=== PATIENT | male | born 1970 | race Caucasian/White ===

== ENCOUNTER → 2021-02-07 13:03 | Outpatient (BNVA) | payer OTHER, SELFPAY | PROVIDERS: PCP Internal Medicine; Visit Provider Internal Medicine | DX: M75.21 Bicipital tendinitis, right shoulder (principal) | CPT/HCPCS: 99202 ==

== ENCOUNTER → 2021-02-09 15:14 | Outpatient (BNVA) | payer OTHER, SELFPAY | PROVIDERS: PCP Internal Medicine; Visit Provider Internal Medicine | DX: M75.42 Impingement syndrome of left shoulder (principal) | CPT/HCPCS: 99213 ==

== ENCOUNTER → 2021-06-06 11:38 | Outpatient (BNVA) | payer OTHER, SELFPAY | PROVIDERS: PCP Internal Medicine; Visit Provider Physician Assistant | DX: S63.502D Unspecified sprain of left wrist, subsequent encounter (principal); X58.XXXD Exposure to other specified factors, subsequent encounter | CPT/HCPCS: 29085; 73110; 99214 ==

== ENCOUNTER → 2021-06-12 13:02 | Outpatient (BNVA) | payer OTHER, SELFPAY | PROVIDERS: PCP Internal Medicine; Visit Provider Internal Medicine | DX: S63.642D Sprain of metacarpophalangeal joint of left thumb, subsequent encounter (principal); X58.XXXD Exposure to other specified factors, subsequent encounter | CPT/HCPCS: 99213 ==

== ENCOUNTER 2021-06-21 08:32 | Outpatient (REF) | payer OTHER, SELFPAY ==
--- NOTE | ~2021-06-21 | XR_ITS ---
EXAMINATION: XR HAND, LEFT CLINICAL INFORMATION: Left hand pain. COMPARISON: Left wrist radiographs dated 06/06/2021. TECHNIQUE: PA, lateral, and oblique views of the left hand. FINDINGS: The bones and soft tissues are normal. No fracture. Alignment is anatomic. Joint spaces are maintained. No erosions or soft tissue calcifications. XR/XR hand LT min 3V IMPRESSION: Unremarkable examination.
== END 2021-06-21 08:33 | disposition home or self-care (01) ==
LOC: HO.HOSX 08:32
PROVIDERS: Visit Provider Orthopaedic Surgery
DX: M65.4 Radial styloid tenosynovitis [de Quervain] (principal)
CPT/HCPCS: 73130; 99202

== ENCOUNTER → 2021-07-13 13:15 | Outpatient (BNVA) | payer OTHER, SELFPAY | PROVIDERS: Visit Provider Orthopaedic Surgery | DX: M65.4 Radial styloid tenosynovitis [de Quervain] (principal) | CPT/HCPCS: 99212 ==

== ENCOUNTER 2021-07-18 13:00 | Outpatient (RCR) | payer OTHER, SELFPAY ==
--- NOTE | 2021-07-12 13:02 | MHC.OT.OP ---
[address] [phone] F: [phone] Occupational Therapy Progress Note Diagnosis: Left thumb injury Date of Evaluation: 06/20/21 Treatments to Date: 7 Subjective: It's a consistent 2/10, the pain is going down. If I do something I shouldn't the pain goes higher Pain Score: 2 Pain Location: radial wrist Objective Measures: Wrist ext/flex 70/70 B/L'ly Gross grasp R 60 L 47 Status: Progressing Assessment: Progressing after traumatic De Quervain's tendinitis. Low pain overall w/ good ROM, slightly decreased gross grasp. Good follow through w/ joint protection, activity modifcation and HEP. 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
--- NOTE | 2021-08-16 08:43 | MHC.OT.OP ---
[address] [phone] F: [phone] Occupational Therapy Progress Note Diagnosis: Left thumb injury Date of Evaluation: 06/20/21 Treatments to Date: 8 Subjective: I was out for Covid and then when I went back to work I pulled a tire out of the ambulance and felt a strong pain in my arm that goes all the way up now Pain Score: 6 Pain Location: radial wrist Objective Measures: *From previous assessment* Wrist ext/flex 70/70 B/L'ly Gross grasp R 60 L 47 Status: Progressing Assessment: Thang had been progressing well w/ pain and strength after acute De Quervain's tendinopathy, however he has not attended OT in about a month due to (+) Covid. I reached out via phone call to see if he was feeling well enough to discharge therapy services, but he reports at work this week he strained his wrist further and now has pain radiating up his arm. He states he has an appt at ortho tomorrow 08/17/21 and will likely ask for a Cortisone infection. He may benefit from cont'd therapy services if recommended after that visit. I will continue to follow, thank you. 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
--- NOTE | 2021-09-06 14:58 | MHC.OT.DC ---
[address] [phone] F: [phone] Occupational Therapy Discharge Note Provider: Carlie Flanagan PA-C Diagnosis: Left thumb injury Date of Evaluation: 06/20/21 Date of Discharge: 09/06/21 Treatments to Date: 8 Discharge Status: Improved Function Patient Elected to Stop Discharge Summary: Thang was seen in OT s/p acute strain injury to left hand/wrist. He had shown good imporvement in pain and overall use, however he tested Covid (+) and all therapy was placed on hold. He had not returned for therapy in almost two months. He has been Ind w/ HEP and was suspected to be progressing well. Electronically Signed By: VANDA Mendez/Pedro Luis Reviewed/agree with student documentation: N/A Therapist: Please Sign and return to therapist, thank you for your referral.
== END 2021-09-06 14:58 | disposition home or self-care (01) ==
LOC: HO.OT 13:00
PROVIDERS: Visit Provider Internal Medicine
DX: S69.92XD Unspecified injury of left wrist, hand and finger(s), subsequent encounter (principal)
CPT/HCPCS: 29125; 97033; 97110; 97140; 97165; 97760

== ENCOUNTER → 2021-08-17 14:16 | Outpatient (BNVA) | payer OTHER, SELFPAY | PROVIDERS: Visit Provider Physician Assistant | DX: M65.4 Radial styloid tenosynovitis [de Quervain] (principal); Z88.8 Allergy status to other drugs, medicaments and biological substances | CPT/HCPCS: 20550; 99212; J1020 ==